=== PATIENT | female | born 1960 | race Caucasian/White ===

== ENCOUNTER 2017-03-25 18:08 | Emergency (ER) | payer OTHER ==
[~2017-03-25] VITALS: Ht 170.2 cm; Wt 54.4 kg
== END 2017-03-25 18:45 | disposition home or self-care (01) ==
LOC: ER 18:08
DX: Z00.8 Encounter for other general examination (principal)
CPT/HCPCS: 99283

== ENCOUNTER → 2019-10-08 | Outpatient (CLI) | payer OTHER ==
[2019-10-08 14:38] LABS: BASOPHILS ABSOLUTE AUTO 0.03 K/mm3 (0.00-0.23); BASOPHILS PERCENT AUTO 0 % (0-2); EOSINOPHILS ABSOLUTE AUTO 0.05 K/mm3 (0.00-0.68); EOSINOPHILS PERCENT AUTO 1 % (0-6); Hematocrit 41.9 % (33.0-51.0); Hemoglobin 13.7 g/dL (11.5-16.0); IMMATURE GRAN ABSOLUTE AUTO 0.03 K/mm3 (0.00-0.10); IMMATURE GRAN PERCENT AUTO 0 % (0-1); LYMPHOCYTES ABSOLUTE AUTO 1.22 K/mm3 (0.84-5.20); LYMPHOCYTES PERCENT AUTO 12 % (21-46); MONOCYTES ABSOLUTE AUTO 0.36 K/mm3 (0.16-1.47); MONOCYTES PERCENT AUTO 4 % (4-13); Mean Corpuscular HGB 31.1 pg (26.0-34.0); Mean Corpuscular HGB Conc 32.7 g/dL (31.5-36.5); Mean Corpuscular Volume 95 fL (80-100); Mean Platelet Volume 9.2 fL (9.1-12.4); NEUTROPHILS ABSOLUTE AUTO 8.16 K/mm3 (1.96-9.15); NEUTROPHILS PERCENT AUTO 83 % (41-73); Platelet Count 392 K/mm3 (150-400); RDW Coefficient Variation 11.4 % (11.7-14.2); RDW Standard Deviation 39.8 fL (35.1-46.3); Red Blood Cell Count 4.41 M/mm3 (3.80-5.20); White Blood Cell Count 9.85 K/mm3 (4.00-11.30)
[2019-10-08 14:58] LABS: Alanine Aminotransfer (ALT/SGP 15 U/L (12-78); Albumin, Blood 3.6 g/dL (3.4-5.0); Albumin/Globulin Ratio 0.9 (0.8-1.8); Alk Phos 109 U/L (40-126); Anion Gap 9 mmol/L (6-16); Aspartate Aminotrans (AST/SGOT 16 U/L (12-37); Bilirubin, Total 0.2 mg/dL (0.1-1.0); Blood Urea Nitrogen 11 mg/dL (8-24); Bun/Creatinine Ratio 13.6 (12.0-20.0); CO2, Blood 31 mmol/L (21-32); Calcium, Blood 9.2 mg/dL (8.5-10.1); Chloride, Blood 99 mmol/L (98-108); Creatinine, Blood 0.81 mg/dL (0.40-1.00); Glomerular Filtration Rate >60 (60-); Glucose, Blood 106 mg/dL (70-99); Sodium, Blood 139 mmol/L (136-145); Thyroid Stimulating Hormone 1.278 uIU/mL (0.360-4.800); Total Protein, Blood 7.6 g/dL (6.4-8.2)
== END | disposition home or self-care (01) ==
LOC: LAB SHORT 14:34 → LAB EV 14:34
PROVIDERS: Physician Assistant Medical
DX: R10.30 Lower abdominal pain, unspecified (principal); R53.83 Other fatigue
CPT/HCPCS: 80053; 84443; 85025

== ENCOUNTER → 2019-12-21 | Outpatient (CLI) | payer OTHER | END | disposition home or self-care (01) | LOC: LAB SHORT 07:48 → PLD 07:48 | DX: D22.9 Melanocytic nevi, unspecified (principal) | CPT/HCPCS: 88305 ==

== ENCOUNTER 2020-01-18 11:24 | Day surgery (SDC) | payer OTHER ==
[~2020-01-18] VITALS: Ht 170.2 cm; Wt 44.5 kg
--- NOTE | 2020-01-18 15:21 | NUR ---
01/18/20 1521 Verena Woody LATE ENTRY---DUE TO THE MASS IN THE RECTOSIGMOID AREA THE COLONOSCOPY WAS NOT COMPLETED AND CECUM WAS NOT REACHED
== END 2020-01-18 13:20 | disposition home or self-care (01) ==
LOC: ORSCSDS 11:24
DX: R19.4 Change in bowel habit (principal); K21.00 Gastro-esophageal reflux disease with esophagitis, without bleeding; K31.7 Polyp of stomach and duodenum; K22.70 Barrett's esophagus without dysplasia; K22.2 Esophageal obstruction; K44.9 Diaphragmatic hernia without obstruction or gangrene; C20 Malignant neoplasm of rectum; R63.4 Abnormal weight loss; F17.210 Nicotine dependence, cigarettes, uncomplicated; J44.9 Chronic obstructive pulmonary disease, unspecified
CPT/HCPCS: 88305; 88342; J2704; J7120

== ENCOUNTER 2020-03-27 06:09 | Day surgery (SDC) | payer OTHER ==
[~2020-03-27] VITALS: Ht 170.2 cm; Wt 47.5 kg
[~2020-03-27 06:09] MED LIST: ALBU90OI INH
--- NOTE | 2020-03-27 08:05 | NUR ---
Amb[facility] in [facility] warming gown applied. Surgical site prepped with 2% Chlorhexidine cloth wipe. Lungs clear T/O to Auscultation. History, Chart, Medications and Allergies reviewed before start of procedure.Patient confirms NPO status and agrees with scheduled surgery. Pre-Op teaching done. Pt verbalizes understanding. Patient States Post-Procedure ride home has been arranged. Patient reports completing Chlorhexadine shower X2 prior to admission to hospital.
--- NOTE | 2020-03-27 08:52 | NUR ---
PT INCISIONS TO R CHEST AND NECK WITH DURABOND IN PLACE. NO DRAINAGE OR BLEEDING NOTED. PT GIVEN PO PAIN MEDS FOR PAIN AFTER ELIANA PO FOOD AND FLUIDS.
--- NOTE | 2020-03-27 09:21 | NUR ---
Patient up to Ambulate independently. Gait steady. Discharge instructions reviewed with patient. Patient verbalizes understanding. Copy given to patient to take home. Patient States Post-Procedure ride home has been arranged. Discharged via wheelchair to private car for ride home. ALL BELONINGS RETURNED TO PATIENT. MEDIPORT SUPPLIES SENT HOME. PT VERBALIZES KNOWLEDGE OF INSTRUCTIONS. NO CHANGE IN INCISIONS.
== END 2020-03-27 09:15 | disposition home or self-care (01) ==
LOC: ORSCMMR 06:09 → ORD 11:30 → ORSCMMR 11:30
PROVIDERS: Surgery
PROC: 05HM33Z Insertion of Infusion Device into Right Internal Jugular Vein, Percutaneous Approach (ICD-10-PCS; principal; 2020-03-27 07:30)
PROC: B543ZZA Ultrasonography of Right Jugular Veins, Guidance (ICD-10-PCS; principal; 2020-03-27 07:30)
DX: C20 Malignant neoplasm of rectum (principal); K60.2 Anal fissure, unspecified; F17.210 Nicotine dependence, cigarettes, uncomplicated; J45.909 Unspecified asthma, uncomplicated; Z79.899 Other long term (current) drug therapy
CPT/HCPCS: 77001; A9270; C1788; J0690; J1100; J1642; J2250; J2405; J2704; J3010; J7120

== ENCOUNTER → 2020-08-08 | Outpatient (CLI) | payer OTHER ==
[2020-08-09 14:22] LABS: C DIFFICILE DNA NEGATIVE (Negative)
== END | disposition home or self-care (01) ==
LOC: LAB 01:30 → LAB SHORT 01:30
PROVIDERS: Radiology Therapeutic Radiology
DX: C20 Malignant neoplasm of rectum (principal)
CPT/HCPCS: 87493

== ENCOUNTER 2022-04-02 05:58 | Day surgery (SDC) | payer OTHER ==
[~2022-04-02] VITALS: Ht 170.2 cm; Wt 46.3 kg
[2022-04-02] MEDS ORDERED: GABA400 PO (11:48)
[2022-04-02] MEDS ORDERED: UBID10 PO (11:48)
[2022-04-02] MEDS ORDERED: ACET500 PO (11:48)
--- NOTE | 2022-04-02 14:16 | NUR ---
XRAY CLEAR PER HANH GOFF. PT ON RM AIR. PT ALERT AND ORIENTED COMMUNICATING APPROPRIATELY W STAFF. VSS.
--- NOTE | 2022-04-02 14:36 | NUR ---
REPORT RECEIVED FROM JUDIE WALLACE RN. VSS AND CONSISTENT WITH PT BASELINE. PT REPORTS NO PAIN OR NAUSEA AT THIS TIME. PT DRESSING C/D/I WITHOUT DRAINAGE, REDNESS, OR SWELLING. PT REQUESTING PO FLUIDS AND TOLERATING THEM WELL. PT ABLE TO REPOSITION HERSELF IN BED.
--- NOTE | 2022-04-02 15:03 | NUR ---
Patient up to Ambulate independently. Gait steady. Discharge instructions reviewed with patient. Patient verbalizes understanding. Copy given to patient to take home. Dressing to procedure site clean, dry, intact with no visible drainage, swelling, erythema or bruising noted. Patient States Post-Procedure ride home has been arranged. Discharged via wheelchair to private car for ride home.
== END 2022-04-02 23:55 | disposition home or self-care (01) ==
LOC: ORSCMMR 05:58 → ORD 09:15 → ORSCMMR 09:15 → ORD 12:00 → ORSCMMR 23:55
PROVIDERS: Surgery
PROC: 0JH60WZ Insertion of Totally Implantable Vascular Access Device into Chest Subcutaneous Tissue and Fascia, Open Approach (ICD-10-PCS; principal; 2022-04-02 13:00)
DX: C20 Malignant neoplasm of rectum (principal); J44.9 Chronic obstructive pulmonary disease, unspecified; J45.909 Unspecified asthma, uncomplicated; K21.9 Gastro-esophageal reflux disease without esophagitis; Z87.891 Personal history of nicotine dependence
CPT/HCPCS: 77001; C1788; J0690; J1100; J1642; J2250; J2405; J2704; J3010; J7120

== ENCOUNTER 2022-12-01 04:52 | Day surgery (SDC) | payer OTHER ==
[~2022-12-01 04:52] MED LIST changes: +ACET500 PO; +GABA300 PO; +GABA400 PO; +OXYC5 PO; +UBID10 PO
== END 2022-12-01 23:09 | disposition home or self-care (01) ==
LOC: WOUND 04:52
DX: T81.31XD Disruption of external operation (surgical) wound, not elsewhere classified, subsequent encounter (principal); K60.4 Rectal fistula; Z88.0 Allergy status to penicillin; Z87.891 Personal history of nicotine dependence; Z93.3 Colostomy status; Y83.8 Other surgical procedures as the cause of abnormal reaction of the patient, or of later complication, without mention of misadventure at the time of the procedure
CPT/HCPCS: A9270; G0463

== ENCOUNTER 2022-12-06 00:55 | Day surgery (SDC) | payer OTHER | END 2022-12-07 23:03 | disposition home or self-care (01) | LOC: WOUND 00:55 | DX: T81.30XD Disruption of wound, unspecified, subsequent encounter (principal); C20 Malignant neoplasm of rectum; K60.4 Rectal fistula; L59.8 Other specified disorders of the skin and subcutaneous tissue related to radiation; Z93.3 Colostomy status; Y83.8 Other surgical procedures as the cause of abnormal reaction of the patient, or of later complication, without mention of misadventure at the time of the procedure | CPT/HCPCS: A9270; G0463 ==

== ENCOUNTER 2022-12-13 02:16 | Day surgery (SDC) | payer OTHER | END 2022-12-13 22:52 | disposition home or self-care (01) | LOC: WOUND 02:16 | DX: T81.31XD Disruption of external operation (surgical) wound, not elsewhere classified, subsequent encounter (principal); L59.8 Other specified disorders of the skin and subcutaneous tissue related to radiation; C20 Malignant neoplasm of rectum; K60.4 Rectal fistula; Z93.3 Colostomy status; Y83.8 Other surgical procedures as the cause of abnormal reaction of the patient, or of later complication, without mention of misadventure at the time of the procedure | CPT/HCPCS: A9270; G0463 ==

== ENCOUNTER 2022-12-13 11:18 | Day surgery (SDC) | payer OTHER | END 2022-12-13 22:52 | disposition home or self-care (01) | LOC: HBO 11:18 | DX: L59.8 Other specified disorders of the skin and subcutaneous tissue related to radiation (principal); C20 Malignant neoplasm of rectum; K60.4 Rectal fistula; Z93.3 Colostomy status; T81.31XD Disruption of external operation (surgical) wound, not elsewhere classified, subsequent encounter; Y83.8 Other surgical procedures as the cause of abnormal reaction of the patient, or of later complication, without mention of misadventure at the time of the procedure | CPT/HCPCS: A9270; G0277; G0463 ==

== ENCOUNTER 2022-12-15 04:44 | Day surgery (SDC) | payer OTHER | END 2022-12-15 23:31 | disposition home or self-care (01) | LOC: HBO 04:44 | DX: L59.8 Other specified disorders of the skin and subcutaneous tissue related to radiation (principal); C20 Malignant neoplasm of rectum; K60.4 Rectal fistula; Z93.3 Colostomy status | CPT/HCPCS: G0277 ==

== ENCOUNTER 2022-12-16 04:04 | Day surgery (SDC) | payer OTHER | END 2022-12-16 22:47 | disposition home or self-care (01) | LOC: HBO 04:04 | DX: L59.8 Other specified disorders of the skin and subcutaneous tissue related to radiation (principal); C20 Malignant neoplasm of rectum; K60.4 Rectal fistula; Z93.3 Colostomy status | CPT/HCPCS: G0277 ==

== ENCOUNTER 2022-12-17 04:48 | Day surgery (SDC) | payer OTHER | END 2022-12-17 22:53 | disposition home or self-care (01) | LOC: HBO 04:48 | DX: L59.8 Other specified disorders of the skin and subcutaneous tissue related to radiation (principal); C20 Malignant neoplasm of rectum; K60.4 Rectal fistula; Z93.3 Colostomy status | CPT/HCPCS: G0277 ==

== ENCOUNTER 2022-12-23 16:37 | Inpatient (IN) | payer OTHER ==
[~2022-12-23] VITALS: Ht 170.2 cm; Wt 40.8 kg
[2022-12-23] MEDS ORDERED: OMEP20ER PO ×2 (17:18)
[2022-12-23] MEDS ORDERED: OXYC10TA19 PO ×2 (17:18)
[2022-12-23 18:12] LABS: Hematocrit 32.9 % (33.0-51.0); Mean Corpuscular HGB Conc 30.4 g/dL (31.5-36.5); Mean Corpuscular Volume 89 fL (80-100); Mean Platelet Volume 8.7 fL (9.1-12.4); Platelet Count 729 K/mm3 (150-400); RDW Coefficient Variation 17.1 % (11.7-14.2); RDW Standard Deviation 55.5 fL (35.1-46.3); Red Blood Cell Count 3.71 M/mm3 (3.80-5.20); White Blood Cell Count 33.92 K/mm3 (4.00-11.30)
[2022-12-23] MEDS ORDERED: Cipro500 MG PO ×2 (18:18)
[2022-12-23 18:26] LABS: Albumin, Blood 2.5 g/dL (3.4-5.0); Albumin/Globulin Ratio 0.6 (0.8-1.8); Bilirubin, Total 0.2 mg/dL (0.1-1.0); Bun/Creatinine Ratio 19.8 (12.0-20.0); Calcium, Blood 8.6 mg/dL (8.5-10.1); Creatinine, Blood 1.01 mg/dL (0.40-1.00); Globulin, Blood 3.9 g/dL (2.2-4.0); Potassium, Blood 3.9 mmol/L (3.5-5.5); Total Protein, Blood 6.4 g/dL (6.4-8.2)
[2022-12-23 18:35] LABS: BAND PERCENT MAN 2 % (0-8); BASOPHILS PERCENT MAN 0 % (0-2); EOSINOPHILS PERCENT MAN 0 % (0-6); LYMPHOCYTES ABSOLUTE MAN 1.01 K/mm3 (0.84-5.20); LYMPHOCYTES PERCENT MAN 3 % (21-46); MONOCYTES ABSOLUTE MAN 1.69 K/mm3 (0.16-1.47); MONOCYTES PERCENT MAN 5 % (4-13); SEG NEUTROPHILS PERCENT MAN 90 % (41-73); TOTAL CELLS COUNTED 100
[2022-12-23] MEDS ORDERED: LIDO700A20 TOP (19:31)
[2022-12-23 22:31] VITALS: BP 121/57
[2022-12-24 03:04] VITALS: BP 104/51
--- NOTE | 2022-12-24 04:48 | NUR ---
SHIFT SUMMARY/ADMISSION NOTE PATIENT ARRIVED TO UNIT FROM ED AT 22:24. ORIENTED TO UNIT, ROOM, AND CALL LIGHT FUNCTIONS. IS A/Ox4, PLEASANT/BRIGHT AFFECT. NOTABLE APPEARANCE OF CANCER RELATED CACHEXIA, SEVER MUSCULAR ATROPHY AND SUBCUTANEOUS FAT LOSS. PATIENT ACKNOWLEDGES VERY POOR APPETITE, NO OUTPUT FROM COLOSTOMY x1 WEEK. IS HAVING LOOSE STOOL FROM RECTUM AND DRAINAGE FROM FISTULA, NO FOUL ODOR. FISTULA IS FROM BOWEL PERFORATION, WITH SOME MIXED FECAL/SEROUS FLUID DRAINAGE. HAS 14FR NG TUBE IN PLACE TO LOW INTERMITTENT WALL SUCTION, DENIES CURRENT N/V. VSS ON RA. PIV TO RIGHT WRIST INFUSING NS AT 100ML/HR. ON TELE, SR 80-90S. NO ACUTE CHANGES NOTED OVERNIGHT. BED LOCKED IN LOWEST POSITION, CALL LIGHT WITHIN REACH.
[2022-12-24 05:31] LABS: Hematocrit 29.8 % (33.0-51.0); Hemoglobin 9.5 g/dL (11.5-16.0); Mean Corpuscular HGB 26.9 pg (26.0-34.0); Mean Corpuscular HGB Conc 31.9 g/dL (31.5-36.5); Mean Platelet Volume 8.6 fL (9.1-12.4); Platelet Count 574 K/mm3 (150-400); RDW Standard Deviation 52.3 fL (35.1-46.3); Red Blood Cell Count 3.53 M/mm3 (3.80-5.20); White Blood Cell Count 21.31 K/mm3 (4.00-11.30)
[2022-12-24 05:38] LABS: Mean Corpuscular Volume 84 fL (80-100)
[2022-12-24 06:32] LABS: Bun/Creatinine Ratio 18.2 (12.0-20.0); Creatinine, Blood 0.94 mg/dL (0.40-1.00); Potassium, Blood 3.6 mmol/L (3.5-5.5)
[2022-12-24 07:34] VITALS: BP 110/66
[2022-12-24 16:55] VITALS: BP 116/67
[2022-12-24] MEDS ORDERED: LOPE2C PO ×2 (17:51)
[2022-12-24] MEDS ORDERED: DIPATR PO ×2 (17:51)
--- NOTE | 2022-12-24 19:34 | NUR ---
DISCHARGE SUMMARY PATIENT WITH FREQUENT BEDDING CHANGE AND DRESSING CHANGE NEEDS. NO DRAINAGE FROM OSTOMY TODAY,GREE DRAINAGE FROM NG TUBE, PATIENT REQUESTED REMOVAL OF TUBE AND DR HILLS DISCUSSED RISKS OF REMOVAL OF TUBE, PATIENT V/U AND STATES SHE STILL WANTS IT OUT, ORDER TO REMOVE TUBE. LEATHER BELT LOOP CUTTER REMOVED TUBE, ORAL FLUIDS PROVIDED, PATIENT TOLERATED CLEAR LIQUDS WELL AND ADVANCED TO FULL LIQUID BEFORE DISCHARGE. SACRAL FISTULA OPENING/WOUND WITH MEPILEXE DRESSING AND CHANGED WITH EACH CLEANING OF BM. FISTULA OF RECUM WITH GREEN LIQUID, CHANGED APPROX 10 TIMES TODAY. PATIENT REQUESTED TO LEAVE TODAY, EDUCATED ON RISKS OF LEAVING, BENEFITS OF STAYING IN HOSPITAL FOR TREATMENT AND ALL OTHER OPTIONS. PATIENT EDUCATION AND MEDICATION PACKET GIVEN TO PATIENT. SIGNATURES OBTAINED, LEATHER BELT LOOP CUTTER GAVE SIGNED COPY OF MEDICATION LIST WITH INSTRUCTION TO TAKE TO HER PHARMACY OF CHOICE DUE TO FAX MACHINES NOT WORKING ON OUR FLOOR AT THIS TIME. SHE VERBALIZED UNDERSTANDING. IVS REMOVED, PATIENT LEFT FLOOR IN WHEELCHAIR WITH [employer] MECHANIC AT 1810, RECIEVED OUTSIDE BY SON AND LEAVING PRIVATE VEHICLE.
== END 2022-12-24 18:21 | disposition home or self-care (01) | DRG 871 ==
LOC: ER 16:37 → MEDS 20:19 → ENPENDDIS 12-24 16:56 → MEDS 12-24 18:21
PROVIDERS: Nurse Practitioner Acute Care; Physician Assistant; ADMIT Internal Medicine
DX: A41.9 Sepsis, unspecified organism (principal); K63.1 Perforation of intestine (nontraumatic); K65.1 Peritoneal abscess; K56.609 Unspecified intestinal obstruction, unspecified as to partial versus complete obstruction; C20 Malignant neoplasm of rectum; E87.20 Acidosis, unspecified; E87.1 Hypo-osmolality and hyponatremia; M86.9 Osteomyelitis, unspecified; K90.829 Short bowel syndrome, unspecified; D64.9 Anemia, unspecified; F17.200 Nicotine dependence, unspecified, uncomplicated; R54 Age-related physical debility; E86.1 Hypovolemia; Z88.0 Allergy status to penicillin; Z90.49 Acquired absence of other specified parts of digestive tract; Z93.3 Colostomy status
CPT/HCPCS: 36415; 71045; 74177; 80048; 80053; 83605; 83735; 85025; 85027; 87040; 94762; 96361; 96365; 96366; 96375; 99285-25; A9270; J0696; J1170; J2405; J3010; J7030; J7040; Q9967

== ENCOUNTER 2022-12-27 00:51 | Day surgery (SDC) | payer OTHER ==
[~2022-12-27 00:51] MED LIST changes: +Cipro500 MG PO; +DIPATR PO; +LIDO700A20 TOP; +LOPE2C PO; +OMEP20ER PO; +OXYC10TA19 PO
== END 2022-12-27 22:51 | disposition home or self-care (01) ==
LOC: WOUND 00:51
DX: L59.8 Other specified disorders of the skin and subcutaneous tissue related to radiation (principal); K60.4 Rectal fistula; Z93.3 Colostomy status; C20 Malignant neoplasm of rectum; S31.000D Unspecified open wound of lower back and pelvis without penetration into retroperitoneum, subsequent encounter
CPT/HCPCS: A9270; G0463

== ENCOUNTER 2023-01-05 14:36 | Inpatient (IN) | payer OTHER ==
[~2023-01-05] VITALS: Ht 167.6 cm; Wt 42.4 kg
[2023-01-05] VITALS (7 sets, daily range): BP systolic 76–83; BP diastolic 42–53
[2023-01-05 15:57] LABS: BASOPHILS ABSOLUTE AUTO 0.02 K/mm3 (0.00-0.23); BASOPHILS PERCENT AUTO 0 % (0-2); EOSINOPHILS PERCENT AUTO 0 % (0-6); Hematocrit 27.1 % (33.0-51.0); Hemoglobin 8.4 g/dL (11.5-16.0); IMMATURE GRAN ABSOLUTE AUTO 0.07 K/mm3 (0.00-0.10); IMMATURE GRAN PERCENT AUTO 1 % (0-1); LYMPHOCYTES ABSOLUTE AUTO 0.64 K/mm3 (0.84-5.20); LYMPHOCYTES PERCENT AUTO 5 % (21-46); MONOCYTES ABSOLUTE AUTO 0.51 K/mm3 (0.16-1.47); MONOCYTES PERCENT AUTO 4 % (4-13); Mean Corpuscular HGB 26.6 pg (26.0-34.0); Mean Corpuscular Volume 86 fL (80-100); Mean Platelet Volume 8.6 fL (9.1-12.4); NEUTROPHILS PERCENT AUTO 91 % (41-73); Platelet Count 559 K/mm3 (150-400); RDW Coefficient Variation 16.9 % (11.7-14.2); RDW Standard Deviation 53.2 fL (35.1-46.3); Red Blood Cell Count 3.16 M/mm3 (3.80-5.20); White Blood Cell Count 13.74 K/mm3 (4.00-11.30)
[2023-01-05 16:17] LABS: Albumin, Blood 2.1 g/dL (3.4-5.0); Albumin/Globulin Ratio 0.5 (0.8-1.8); Bilirubin, Total 0.2 mg/dL (0.1-1.0); Bun/Creatinine Ratio 13.2 (12.0-20.0); Calcium, Blood 8.4 mg/dL (8.5-10.1); Creatinine, Blood 1.06 mg/dL (0.40-1.00); Globulin, Blood 3.9 g/dL (2.2-4.0); Potassium, Blood 3.5 mmol/L (3.5-5.5)
[2023-01-06] VITALS (63 sets, daily range): BP systolic 77–125; BP diastolic 44–82
--- NOTE | 2023-01-06 00:47 | NUR ---
TRANSFER NOTE/ASSUMPTION OF CARE THIS RN RECEIVED REPORT VIA PHONE FROM JAYLEN KEYES IN THE ED. PT TRANSFERRED TO UNIT AT 1955. WOUND'S PHOTOGRAPHED AND DRESSED WITH MEPILEX. PT A&O X4. ABLE TO MAKE NEEDS KNOWN. HYPOTENSION NOTED. MD OH AWARE. SINCE ARRIVAL PT HAS RECEIVED 2L NS BOLUS. MD SALVADOR WITH NURSE NOTIFY ORDER THAT PT IS ABLE TO HAVE ICE CHIPS AND WATER; MD OH WITH ORDER FOR MIDODRINE FOR CONTINUED HYPOTENSION DESPITE BOLUSES. UPON ARRIVAL PT SPOKE TO THIS RN ABOUT CODE STATUS AND WANTING TO BE A DNR; MD OH NOTIFIED OF DISCUSSION WITH PATIENT AND SON MICHELLE WHO WAS AT BEDSIDE; MD WITH ORDERS TO CHANGE TO DNR. WRIST BAND IN PLACE. PT ABLE TO REPOSITION SELF IN BED INDEPENDENTLY. FOAM EGGCRATE PLACED ON MATTRESS. PT WITH NOTED RECTAL OUTPUT THAT IS LOOSE AND LIGHT BROWN. OSTOMY WITH SMALL HARD BROWN STOOL. PHOTO OF STOMA IN CHART; APPEARS PROTRUDED AND PINK/BEEFY. BS+. SR ON MONITOR WITH HR 70'S. SBP CURRENTLY 90'S AT TIME OF WRITING THIS NOTE. ON RA WITH SPO2 >92%. AFEBRILE. BED IN LOWEST POSITION AND CALL LIGHT WITHIN REACH.
--- NOTE | 2023-01-06 02:17 | NUR ---
PATIENT UPDATE CALL PLACED TO MD HAWKNIS D/T CONTINUED HYPOTENSION WITH SBP 80'S AND MAP AVERAGING 60. PT NOTED TO ONLY BE LETHARGIC AT THIS TIME. MD WITH ORDER FOR 500ML BOLUS AND ALBUMIN. MD WITH ORDER TO REASSESS AFTER INFUSION BOTH AND THEN WILL ASSESS NEED FOR FOR ICU TRANSFER AND LEVOPHED SUPPORT. OTHER VITALS STABLE. BED IN LOWEST POSITION AND CALL LIGHT WITHIN REACH.
[2023-01-06 04:11] LABS: Magnesium, Blood 1.4 mg/dL (1.6-2.4)
[2023-01-06 04:20] LABS: Hemoglobin 7.4 g/dL (11.5-16.0); Mean Corpuscular HGB 26.5 pg (26.0-34.0); Mean Corpuscular HGB Conc 30.8 g/dL (31.5-36.5); Mean Corpuscular Volume 86 fL (80-100); Mean Platelet Volume 8.9 fL (9.1-12.4); Platelet Count 500 K/mm3 (150-400); RDW Standard Deviation 53.6 fL (35.1-46.3); Red Blood Cell Count 2.79 M/mm3 (3.80-5.20); White Blood Cell Count 15.25 K/mm3 (4.00-11.30)
[2023-01-06 04:26] LABS: Percent Saturation 5.3 % (15.0-50.0)
--- NOTE | 2023-01-06 04:41 | NUR ---
PATIENT UPDATE 500ML BOLUS AND ALBUMIN INFUSED PER EMAR. NO CHANGE TO BP. SBP 70-80'S WITH A MAP AVERAGING 60. MD HAWKINS NOTIFIED OF CONTINUED HYPOTENSION. ORDER TO TRANSFER TO ICU FOR LEVOPHED.
[2023-01-06 04:43] LABS: Anion Gap 5 mmol/L (6-16); Blood Urea Nitrogen 14 mg/dL (8-24); Bun/Creatinine Ratio 16.3 (12.0-20.0); CO2, Blood 23 mmol/L (21-32); Calcium, Blood 7.1 mg/dL (8.5-10.1); Chloride, Blood 115 mmol/L (98-108); Creatinine, Blood 0.86 mg/dL (0.40-1.00); Glomerular Filtration Rate 75 (60-); Glucose, Blood 88 mg/dL (70-99); Phosphorus, Blood 3.1 mg/dL (2.5-4.9); Potassium, Blood 3.5 mmol/L (3.5-5.5); Prealbumin, Blood <3.0 mg/dL (20.0-40.0); Sodium, Blood 143 mmol/L (136-145); Triglycerides 51 mg/dL (30-160)
--- NOTE | 2023-01-06 05:58 | NUR ---
ASSUMED CARE PT ARRIVED ON UNIT @0503. A&O X4; SPO2 >92% ON RA; MAP >65; NSR. LEVOPHED AND NS INFUSING PER ORDER (SEE FLOWSHEET). PT DENIES CP, SOB, OR NAUSEA. LUNG SOUNDS CLEAR BILATERALLY. PULSES PALPATED X4. PT HAD LARGE AMOUNTS OF BROWN LIQUID STOOL IN ATTENDS. PT HAS COCCYX WOUND (PIC IN CHART) AND NON-BLANCHEABLE REDNESS IN GLUTEAL FOLD AND RIGHT BUTTOX HAS SMALL OPEN WOUND THAT IS LEAKING STOOL AND CLEAR FLUID WHEN PT FLEXES BUTTOX; MILD PRESSURE APPLIED TO RIGHT OF WOUND PRODUCED MORE FLUID. BELOW THE WOUND IS MORE NON-BLANCHEABLE REDNESS W/ A LUMP; RIGHT BUTTOX IS FIRM AND PAINFUL. WOUND LEAKS W/ ANY MOVEMENT. PT IS CURRENTLY RESTING QUIETLY. PERRLA.
--- NOTE | 2023-01-06 11:40 | NUR ---
REASSESSMENT PT HAS BEEN RESTING IN BED THROUGHOUT THE MORNING. DR. SALVADOR ROUNDED ON PT AND DISCUSSED PT'S OPTIONS FOR CARE GOING FORWARD. PT OPTED FOR GOING HOME WITH HOSPICE. PT ORIGINALLY WANTED TO GO HOME TODAY, BUT AGREED TO STAY ANOTHER DAY TO MAKE SURE PAIN IS CONTROLLED AND TO GET HOSPICE SET UP. PT'S SON PERLA WAS PRESENT FOR DR. SALVADOR'S DISCUSSION. PT'S BP IS STILL REQUIRING LOW DOSE PRESSORS. DISCUSSED PT MONITORING WITH DR. SALVADOR BECAUSE ALL OF THE CORDS HAVE BEEN VERY IRRITATING FOR PT. SHE AGREED TO DC TELEMETRY AND PULSE OX, BUT KEEP BP CUFF AND CONTINUE LEVOPHED FOR NOW. PT AGREES TO THIS PLAN. FISTULA ON PT'S R BUTTOCKS HAS BEEN DRAINING STOOL LIKE FLUID ALL MORNING. ATTENDS CHANGED 3 TIMES AND PT'S SKIN IS GETTING RED. DISCUSSED OPTIONS FOR MANAGING THIS WITH PT AND SHE AGREES TO TRY FECAL DRAINAGE BAG. BAG PLACED, WILL MONITOR. NEW DRESSING PLACED OVER PRESSURE SORE AFTER BAG WAS PLACED. NO VOID YET THIS MORNING. PT DENIES NEEDING TO GO. ATTENDS REMAINS IN PLACE. DR. SALVADOR GAVE OK FOR PT TO HAVE Normal.
--- NOTE | 2023-01-06 17:31 | NUR ---
SHIFT SUMMARY PT HAS WANTED TO REST IN BED THROUGHOUT THE DAY. LEVOPHED TITRATED OFF AND MAP AT 65MMHG. LUNGS ARE CLEAR WITH SPO2 100% ON RA. PT IS SIPPING ON LIQUIDS AND TOLERATING THEM. HER COLOSTOMY WAS EMPTIED TWICE OF SOFT FORMED STOOL. THE FISTULA ON HER R BUTTOCKS IS PUTTING OUT COPIOUS AMOUNTS OF STOOL APEARING FLUID. FECAL COLLECTION BAG LEAKED AND WAS ULTIMATELY TAKEN OFF. MULTIPLE DIFFERENT DRESSINGS UTILIZED TO TRY AND FIND A WAY TO CONTAIN THE FLUID. DRESSING OVER PRESSURE WOUND ON PT'S COCCYX CHANGED MULTIPLE TIMES THEN LEFT OFF BECAUSE IT SEEMS TO BE WICKING THE FLUID FROM THE FISTULA UP TOWARDS THE WOUND. PT VOIDED ONCE WHICH SHE SAYS IS NORMAL FOR HER. PT'S ROOMMATE VISITED AND WAS UPDATED BY NURSING STAFF.
--- NOTE | 2023-01-06 21:52 | NUR ---
ASSUMED CARE AT 1900 PT SON AND HIS S.O. IN AT SHIFT CHANGE TO SEE PT AND LEFT QUICKLY AFTER THAT. PT IS A/O X4 AND ABLE TO MAKE HER NEEDS KNOWN; IRRITABLE AT TIMES BUT COOPERATIVE WITH CARE; SHE IS EMACIATED. PT C/O 08/23 PAIN R/T HER "BOTTOM" PRN FENTANYL GIVEN AND HELPFUL. SPO2 >96% ON RA. HR 65. SBP 90'S WITH MAP 70'S; LEVOPHED ON SB. COLOSTOMY TO LLQ NO OUTPUT AT THIS TIME; FISTULA TO RT BUTTOCKS PRODUCING LARGE AMOUNTS OF LIQUID STOOL; ATTENDS IN PLACE AND CHANGED FREQUENTLY. TOLERATING PO FLUID INTAKE WELL. SEE SHIFT ASSESSMENT FOR FULL ASSESSMENT.
[2023-01-07 00:38] VITALS: BP 100/58
[2023-01-07 03:59] VITALS: BP 113/69
--- NOTE | 2023-01-07 06:38 | NUR ---
END OF SHIFT SUMMARY NO ACUTE EVENTS OVERNIGHT. PAIN CONTROL MORE MANAGABLE WITH PO OXYCODONE. SHE CONT TO BE A/O X4 AND ABLE TO MAKE HER NEEDS KNOWN; AT TIMES WILL BE OVERWHELMED BUT CAN BE TALKED THROUGH WHILE ADDRESSING NEEDS. SHE WAS VERY ADAMANT ABOUT NOT BEING ATTACHED TO ANY CORDS OR LINES BUT AGREED TO HAVE BP CHECKED Q4HR. SPO2 >96% ON RA. HR 60'S. SBP 90-100'S WITH MAP >65; WAS NOT ON LEVOPHED ALL SHIFT. COLOSTOMY BAG CHANGED ONCE; RT BUTTOCK FISTULA SLOWING DOWN ON DRAINAGE BUT WILL POUR OUT WITH MINIMAL MOVEMENT. SHE WAS ABLE TO GET UP TO THE BSC WITH MIN-MOD AMOUNT OF ASSISTANCE. WILL REPORT TO AM RN WHEN AVAILABLE.
--- NOTE | 2023-01-07 07:00 | NUR ---
ASSUMPTION OF CARE PT IS ALERT AND ORIENTED. PARTICIPATES IN CONVERSATION AND ASSISTS WITH CARE. PT EAGER TO GO HOME TODAY. PT CONTINUES TO HAVE THIN LIQUID STOOL FROM FISTULA. OSTOMY INTACT AND HAS BROWN OUTPUT. PT DOES NOT WANT TO BE CONNECTED TO TELEMETRY BUT ALLOWS VS TO BE TAKEN. VS AT THIS TIME. BED IN LOW POSITION, CALL LIGHT WITHIN REACH.
[2023-01-07 08:33] VITALS: BP 96/52
--- NOTE | 2023-01-07 10:45 | NUR ---
UPDATE DR SALVADOR AND DR HILLS ROUNDED. PLAN FOR PT TO DISCHARGE HOME TODAY WITH HOSPICE SERVICES STARTING TOMORROW. PT STS HER FRIEND IS A HOME HEALTH NURSE AND IS ABLE TO ASSIST HER IN THE MEANTIME. CARE MANAGEMENT ARRANGING FINALIZED HOSPICE PAPERWORK.
[2023-01-07] MEDS ORDERED: LOPE2C PO (10:53)
[2023-01-07] MEDS ORDERED: DIPATR PO (10:53)
[2023-01-07] MEDS ORDERED: MORP20L PO (10:55)
--- NOTE | 2023-01-07 12:23 | NUR ---
UPDATE PT PENDING DISCHARGE. FRIEND/ROOMMATE YUMI TOOK PT'S BELONGINGS HOME ALONG WITH PAPER PRESCRIPTION TO TAKE TO THE PHARMACY. PT CONTINUES TO WANT TO GO HOME DESPITE HOSPICE SERVICES BEING UNAVAILABLE UNTIL TOMORROW. WAITING FOR GURNEY TRANSPORT HOME
--- NOTE | 2023-01-07 13:01 | NUR ---
DISCHARGE PT MEDICATED PER EMAR, NEW ATTENDS IN PLACE. GURNEY TRANSPORT AT BEDSIDE. PT LEFT DEPARTMENT WITH CELL PHONE, FLOOR INSPECTOR AND ONE BAG OF BELONGINGS AT 1255.
== END 2023-01-07 12:59 | disposition hospice, home (50) | DRG 871 ==
LOC: ER 14:36 → ICUE 17:40 → PCU 17:40 → ICUE 19:57 → PCU 20:14 → ICUE 01-06 05:00
PROVIDERS: Student in an Organized Health Care Education/Training Program; ADMIT Internal Medicine
PROC: 3E033XZ Introduction of Vasopressor into Peripheral Vein, Percutaneous Approach (ICD-10-PCS; principal; 2023-01-05)
PROC: 3E03329 Introduction of Other Anti-infective into Peripheral Vein, Percutaneous Approach (ICD-10-PCS; 2023-01-05)
DX: A41.9 Sepsis, unspecified organism (principal); R65.21 Severe sepsis with septic shock; L02.211 Cutaneous abscess of abdominal wall; K63.2 Fistula of intestine; C18.9 Malignant neoplasm of colon, unspecified; K56.609 Unspecified intestinal obstruction, unspecified as to partial versus complete obstruction; R64 Cachexia; Z68.1 Body mass index [BMI] 19.9 or less, adult; E46 Unspecified protein-calorie malnutrition; Z51.5 Encounter for palliative care; F43.10 Post-traumatic stress disorder, unspecified; D64.9 Anemia, unspecified; F17.210 Nicotine dependence, cigarettes, uncomplicated; M54.9 Dorsalgia, unspecified; Z93.3 Colostomy status; F11.90 Opioid use, unspecified, uncomplicated; G89.29 Other chronic pain; Z88.0 Allergy status to penicillin; Z79.899 Other long term (current) drug therapy; Z92.21 Personal history of antineoplastic chemotherapy; Z98.890 Other specified postprocedural states; Z85.048 Personal history of other malignant neoplasm of rectum, rectosigmoid junction, and anus
CPT/HCPCS: 36415; 74177; 80048; 80053; 82728; 83540; 83550; 83605; 83735; 84100; 84134; 84145; 84478; 85025; 85027; 86140; 87040; 96374-59; 96375; 96376; 99284-25; A9270; C9113; J0692; J2405; J3010; J3370; J3475; J7030; J7040; J7060; P9047; Q9967